=== PATIENT | female | born 1985 | race African-American/Black ===

== ENCOUNTER 2020-06-11 17:32 | Emergency (ER) | payer OTHER ==
[2020-06-12 11:48] LABS: SARS-CoV-2 MS2 Positive; SARS-CoV-2 N Gene Negative; SARS-CoV-2 S Gene Negative; SARS-CoV-2 orf1ab Negative
== END 2020-06-11 18:11 | disposition home or self-care (01) ==
LOC: ERS 17:32
DX: R11.2 Nausea with vomiting, unspecified (principal); M79.10 Myalgia, unspecified site; Z20.828 Contact with and (suspected) exposure to other viral communicable diseases
CPT/HCPCS: 87635; 99283; U0003